=== PATIENT | female | born 1990 | race Caucasian/White ===

== ENCOUNTER 2022-08-22 09:27 | Outpatient (OUT) | payer MEDICAID, SELFPAY ==
--- NOTE | 2022-08-22 09:47 | XR_ITS ---
The [address] [address] Patient Name: KAYLEY SIMS MRN: [id number] date: 1990 Sex: F Assigned Patient Location: CARD Current Patient Location: CARD Accession/Order Number: [id number] Exam Date: 08/22/2022 09:55 Report Date: 08/23/2022 16:30 At the request of: JASON DAY Procedure: XR chest 2V EXAM: XR chest 2V HISTORY: Acute Cough R05.1 COMPARISON: None. TECHNIQUE: PA and lateral views of the chest performed. FINDINGS: The trachea is normal. The cardiomediastinal silhouette and hilar shadows are normal. The lung feliciano are clear. There is no pneumothorax or osseous abnormality. IMPRESSION: Unremarkable PA and lateral views of the chest. Electronically authenticated by: SYLVIA BAZZI Date: 08/23/2022 16:30
== END 2022-08-22 09:28 ==
PROVIDERS: PCP Family Medicine; Visit Provider Family Medicine
DX: J45.21 Mild intermittent asthma with (acute) exacerbation (principal); R05.1 Acute cough
CPT/HCPCS: 36415; 71046; 85018; 94060; 94726; 94729

== ENCOUNTER 2022-08-22 10:04 | Outpatient (OUT) | payer MEDICAID, SELFPAY ==
[2022-08-22 10:23] LABS: Hemoglobin 12.2 g/dL (12.0-16.0)
== END 2022-08-22 10:05 ==
PROVIDERS: PCP Family Medicine; Visit Provider Family Medicine
DX: J45.21 Mild intermittent asthma with (acute) exacerbation (principal)
CPT/HCPCS: 36415; 85018

== ENCOUNTER 2022-10-09 11:30 | Outpatient (OUT) | payer MEDICAID, SELFPAY ==
--- NOTE | 2022-08-30 | RT_ITS ---
[facility] Test Date: 2022-08-30 Pat Name: Mireille Mir Department: Room: - Gender: Female Assistant Professor Of Psychology: Kim Dee RRT : 1990 Requested By: JASON DAY Order Number: [id number] Reading MD: Kevin King Interpretive Statements Pulmonary function testing was completed according to ATS criteria. Findings were considered accurate and reproducible. No bronchodilator was administered due to normal spirometric values. No prior studies available for comparison. Spirometry: -FEV1/FVC: Normal @ 86% -FEV1: Normal @ 117% -FVC: Normal @ 113% -MVV: Normal @ 141% Lung volumes by plethysmography: -RV: Normal @ 99% -TLC: Normal @ 110% Diffusion capacity: -DLCO: Normal @ 112% when corrected for Hb 12.2g/dL Flow-volume loop: -Normal shape Impressions: -Normal PFT. If asthma remains in the differential, may consider methacholine challenge testing. Clinical correlation required. Electronically Signed On 09-03-2022 7:58:54 EDT by Kevin King
== END 2022-10-09 11:31 | disposition home or self-care (01) ==
LOC: CARD 11:30
PROVIDERS: PCP Family Medicine; Visit Provider Family Medicine
DX: J45.21 Mild intermittent asthma with (acute) exacerbation (principal)
CPT/HCPCS: 94010; 94726; 94729